=== PATIENT | male | born 1960 | race African-American/Black ===

== ENCOUNTER 2016-05-21 16:53 | Emergency (ER) | payer MEDICARE, OTHER ==
[~2016-05-21] VITALS: Ht 175.3 cm; Wt 97.5 kg
[2016-05-21 17:41] VITALS: BP 199/120
--- NOTE | 2016-05-21 19:30 | NUR ---
PATIENT PRESENTS TO ED WITH RT HAND SWOLLEN, HX OF GOUT . DENIES N/V/D; SKIN IS PINK/WARM/DRY; AAOX4 WITH EVEN AND STEADY GAIT; LUNGS CLEAR BL; HR EVEN AND REGULAR; PT DENIES ANY FEVER, CP, SOB, OR COUGH AT THIS TIME; PATIENT STATES PAIN OF 10/10 AT THIS TIME; VSS; PATIENT POSITIONED FOR COMFORT; HOB ELEVATED; BEDRAILS UP X2; BED DOWN. ER MD MADE AWARE OF PT STATUS.
[2016-05-21] MEDS ORDERED: HYDROcodone/APAP 10/325 MG 1 TAB TAB PO PRN (19:45)
--- NOTE | 2016-05-21 19:51 | NUR ---
Patient to bed 07.
[2016-05-21] MEDS ORDERED: hydrALAZINE 20 MG/ML VIAL IM ONE (20:00)
--- NOTE | 2016-05-21 20:01 | NUR ---
LABS BEING DRAWN AT BEDSIDE
--- NOTE | 2016-05-21 20:13 | NUR ---
PT CHOSE TO LEAVE AMA, FORM SIGNED BY NURSE PRACTIONER. NURSE PRACTIONER EXPLAINED TO PATIENT WHY HE NEEDED TO STAY AND HAVE LABS AND MEDICATIONS THAT WERE ORDERED, PATIENT DECIDED TO LEAVE AMA.
[2016-05-21 20:16] VITALS: BP 200/118
--- NOTE | 2016-05-21 20:17 | NUR ---
Patient does not wish to proceed with medical care recommended by . Patient given information related to possible complications, up to and including , which could occur as a result of leaving hospital at this time. Patient verbalizes understanding of risks involved leaving against medical advice. Patient has signed AMA form.
== END 2016-05-21 20:13 | disposition left against medical advice (07) ==
LOC: MED 16:53
DX: M25.531 Pain in right wrist (principal); M79.89 Other specified soft tissue disorders; I10 Essential (primary) hypertension; M10.9 Gout, unspecified
CPT/HCPCS: 73110; 99284